=== PATIENT | male | born 1990 | race Caucasian/White ===

== ENCOUNTER 2016-02-24 18:22 | Emergency (ER) | payer OTHER ==
[~2016-02-24] VITALS: Ht 175.3 cm; Wt 101.8 kg
[~2016-02-24 18:22] MED LIST: PEPCID20 MG PO; ULTRAM50 MG PO
[2016-02-24] MEDS ORDERED: TYLENOL WITH C1 EACH PO (23:32)
[2016-02-24] MEDS ORDERED: ALLEGRA-D 121 TABLET PO (23:32)
[2016-02-24] MEDS ORDERED: ZITHROMAX Z-PA250 MG PO (23:32)
[2016-02-24 23:49] VITALS: BP 143/76
== END 2016-02-24 23:54 | disposition home or self-care (01) ==
LOC: EME 18:22 → RME 18:22
DX: J32.9 Chronic sinusitis, unspecified (principal); F17.200 Nicotine dependence, unspecified, uncomplicated
CPT/HCPCS: 99281; 99284

== ENCOUNTER 2017-09-18 06:38 | Emergency (ER) | payer SELFPAY ==
[~2017-09-18] VITALS: Ht 177.8 cm; Wt 114.1 kg
[~2017-09-18 06:38] MED LIST changes: +ALLEGRA-D 121 TABLET PO; +TYLENOL WITH C1 EACH PO; +ZITHROMAX Z-PA250 MG PO
[2017-09-18] MEDS ORDERED: MOTRIN800 MG PO (07:26)
[2017-09-18] MEDS ORDERED: NORCO 5/3251 TABLET PO (07:26)
[2017-09-18 08:25] VITALS: BP 137/74
== END 2017-09-18 08:29 | disposition home or self-care (01) ==
LOC: EME 06:38
DX: M75.22 Bicipital tendinitis, left shoulder (principal)
CPT/HCPCS: 73030; 99281; 99283